=== PATIENT | female | born 1965 | race Caucasian/White ===

== ENCOUNTER 2022-03-19 17:46 | Emergency (ER) | payer BC, SELFPAY ==
--- NOTE | ~2022-03-19 | XR_ITS ---
Indication: Trauma EXAMINATION: Right ankle, right foot. 2 Detail views the right ankle demonstrate oblique fracture of the distal fibula. Mild distraction. The mortise appears grossly intact. The medial malleolus region shows some irregularity most consistent with dystrophic calcification associated with previous injury. Acute avulsion here cannot be excluded. Moderate to marked spurring at the insertion of the plantar aponeuroses and mild spurring at the insertion of the Achilles 3 views of the right foot does not demonstrate fracture or dislocation of the right foot proper. XR/XR ankle RT min 3V IMPRESSION: Oblique fracture of the distal fibula is minimally displaced. Irregularity of the medial malleolus could be chronic. Correlation recommended clinically. No fracture or dislocation more distally in the right foot.
--- NOTE | ~2022-03-19 | XR_ITS ---
Indication: Trauma EXAMINATION: Right ankle, right foot. 2 Detail views the right ankle demonstrate oblique fracture of the distal fibula. Mild distraction. The mortise appears grossly intact. The medial malleolus region shows some irregularity most consistent with dystrophic calcification associated with previous injury. Acute avulsion here cannot be excluded. Moderate to marked spurring at the insertion of the plantar aponeuroses and mild spurring at the insertion of the Achilles 3 views of the right foot does not demonstrate fracture or dislocation of the right foot proper. XR/XR foot RT min 3V IMPRESSION: Oblique fracture of the distal fibula is minimally displaced. Irregularity of the medial malleolus could be chronic. Correlation recommended clinically. No fracture or dislocation more distally in the right foot.
[2022-03-19 18:41] VITALS: BP 121/79; PULSE 69; RESP 18; TEMP 36.8; O2SAT 98; BMI 35.3
--- NOTE | 2022-03-19 18:43 | ED.GENADULT ---
HPI - General Adult General Chief complaint: Extremity Injury, Lower <CRISTIANO Lucio - Last Filed: 03/19/22 18:50> Stated complaint: Fall/ Right ankle pain <CRISTIANO Lucio - Last Filed: 03/19/22 18:50> Time Seen by Provider: 03/20/22 00:20 <CRISTIANO Lucio - Last Filed: 03/19/22 18:50> Source: patient <Cece Marcum NP - Last Filed: 03/20/22 04:01> Mode of arrival: wheelchair <Cece Marcum NP - Last Filed: 03/20/22 04:01> Limitations: no limitations <Cece Marcum NP - Last Filed: 03/20/22 04:01> History of Present Illness HPI narrative: 57-year-old female presents for right ankle pain and swelling after slipping and falling over her dog. Patient is unable to bear weight. <Cece Marcum NP - Last Filed: 03/20/22 04:01> Onset (ago): hour(s) (Within the hour of arrival) <Cece Marcum NP - Last Filed: 03/20/22 04:01> Location: right and lower extremity <Cece Marcum NP - Last Filed: 03/20/22 04:01> Radiation: non-radiation <Cece Marcum NP - Last Filed: 03/20/22 04:01> Severity: severe <Cece Marcum NP - Last Filed: 03/20/22 04:01> Quality: aching and constant <Cece Marcum NP - Last Filed: 03/20/22 04:01> Pain Consistency: constant <Cece Marcum NP - Last Filed: 03/20/22 04:01> Relieving factors: none <Cece Marcum NP - Last Filed: 03/20/22 04:01> Exacerbating factors: movement <Cece Marcum NP - Last Filed: 03/20/22 04:01> Associated symptoms: denies other symptoms <Cece Marcum NP - Last Filed: 03/20/22 04:01> Treatments prior to arrival: none <Cece Marcum NP - Last Filed: 03/20/22 04:01> Related Data Home medications: Previous Rx's Medication Instructions Recorded ibuprofen 600 mg tablet 600 mg PO Q6H PRN pain #60 tabs 03/20/22 oxycodone 5 mg tablet 5 mg PO Q4H PRN pain 3 days #18 03/20/22 tabs <CRISTIANO Lucio - Last Filed: 03/19/22 18:50> Allergies/adverse reactions: Allergies Allergy/AdvReac Type Severity Reaction Status Date / Time ENVIRONMENTAL Allergy Unknown HEADACHES, Uncoded 11/30/19 16:13 NASAL CONGESTION <CRISTIANO Lucio - Last Filed: 03/19/22 18:50> Review of Systems Review of Systems: Constitutional: No Fever, No Chills Respiratory: No Cough, No Dyspnea Musculoskeletal: positive right ankle pain pain, No Myalgias, positive right ankle Swelling Skin: No Skin lacerations, No rash Neuro: No Weakness, No Numbness, No Paresthesias <Cece Marcum NP - Last Filed: 03/20/22 04:01> Yes all other systems are reviewed and are negative <Cece Marcum NP - Last Filed: 03/20/22 04:01> [facility] Past Medical History Attestation statement: The following information was validated with the patient. <Cece Marcum NP - Last Filed: 03/20/22 04:01> Source: old records reviewed <Cece Marcum NP - Last Filed: 03/20/22 04:01> Social History Social History: Social History Advance Directives: No Advance Directives Information Provided: Yes <CRISTIANO Lucio - Last Filed: 03/19/22 18:50> Physical Exam ED Vital Signs: Vital Signs - 24 hr 03/19/22 18:41 03/20/22 00:21 Temperature 98.2 F 98.0 F Pulse Rate 69 71 Respiratory Rate 18 17 Blood Pressure 121/79 127/77 Pulse Oximetry 98 96 Oxygen Delivery Method Room Air BMI result Body Mass Index 35.3 <NANETTE LucioBC - Last Filed: 03/19/22 18:50> Vital Signs - 24 hr 03/19/22 18:41 03/20/22 00:21 Temperature 98.2 F 98.0 F Pulse Rate 69 71 Respiratory Rate 18 17 Blood Pressure 121/79 127/77 Pulse Oximetry 98 96 Oxygen Delivery Method Room Air BMI result Body Mass Index 35.3 <Cece Marcum NP - Last Filed: 03/20/22 04:01> Appearance: Alert. Oriented X3. Moderate distress. Eyes: Pupils equal, round and reactive to light. Neck: Normal inspection. Neck supple. CVS: Normal heart rate and rhythm. Respiratory: No respiratory distress. Skin: Skin warm and dry. Normal skin color. Normal skin turgor. Extremities: Right ankle swelling with ecchymosis to the lateral malleolar process to the dorsal aspect of the foot. Decreased range of motion, full range of motion not assessed secondary to findings of distal fibular fracture on x-ray. Pulses are equal brisk capillary refill. Neurovascularly intact. Neuro: No motor deficit. No sensory deficit. Cranial nerves 2-12 intact. <Cece Marcum NP - Last Filed: 03/20/22 04:01> Course Course Course Narrative: RME: 57 years old female was trying to get outside through the side door when her dog ran out through the door 1st. Patient then slipped and went down 3 stairs. Patient landed on her right side twisting her right ankle. Patient denies hitting head. No LOC. Patient was able to put minimal weight when stepping on the right foot. Will do x-ray of the right ankle <IZZY Lucio-HERNÁN - Last Filed: 03/19/22 18:50> RME: 57 years old female was trying to get outside through the side door when her dog ran out through the door 1st. Patient then slipped and went down 3 stairs. Patient landed on her right side twisting her right ankle. Patient denies hitting head. No LOC. Patient was able to put minimal weight when stepping on the right foot. Will do x-ray of the right ankle X-rays completed while patient was in the emergency department waiting room, shows a minimally displaced distal fibular fracture and a suspected avulsion fracture of the medial malleolar process. Patient will be placed in a posterior short-leg with stirrup splint, nonweightbearing, with crutches. Will provide pain management with oxycodone, patient does understand and verbalizes the dangers of taking this medication, the high risk of addiction and side effects. Will give Toradol to help decrease inflammation. Patient understand that she must follow-up with the surgeon, referred to Dr. Deluca. 30 minute status post splinting, patient continues with brisk capillary refill and is neurovascularly intact. I did give her instructions for compartment syndrome, and she understands signs and symptoms indicating need for emergent intervention. Patient agrees with plan of care to discharge home. <Cece Marcum NP - Last Filed: 03/20/22 04:01> Medications Administered Discontinued Medications Generic Name Dose Route Start Last Admin Trade Name Freq PRN Reason Stop Dose Admin Ketorolac Tromethamine 30 mg 03/20/22 00:39 03/20/22 01:13 Ketorolac Tromethamine 30 Mg/Ml Vial IM 03/20/22 00:40 30 mg ONCE ONE Administration Oxycodone HCl 5 mg 03/20/22 00:39 03/20/22 01:12 Oxycodone Hcl Immed Release 5 Mg Tablet PO 03/20/22 00:40 5 mg ONCE ONE Administration <IZZY Lucio-HERNÁN - Last Filed: 03/19/22 18:50> Medications Administered Discontinued Medications Generic Name Dose Route Start Last Admin Trade Name Freq PRN Reason Stop Dose Admin Ketorolac Tromethamine 30 mg 03/20/22 00:39 03/20/22 01:13 Ketorolac Tromethamine 30 Mg/Ml Vial IM 03/20/22 00:40 30 mg ONCE ONE Administration Oxycodone HCl 5 mg 03/20/22 00:39 03/20/22 01:12 Oxycodone Hcl Immed Release 5 Mg Tablet PO 03/20/22 00:40 5 mg ONCE ONE Administration <Cece Marcum NP - Last Filed: 03/20/22 04:01> Medical Decision Making Differential Diagnosis Differential Diagnoses: The differential diagnosis associated with the presentation includes <Cece Marcum NP - Last Filed: 03/20/22 04:01> Fracture, dislocation, effusion <Cece Marcum NP - Last Filed: 03/20/22 04:01> Admission/Observation Consideration of admission/observation: Escalation of care including admission/observation considered <Cece Marcum NP - Last Filed: 03/20/22 04:01> Admission not considered for this patient <Cece Marcum NP - Last Filed: 03/20/22 04:01> Independent Interpretation I performed an independent interpretation of an: Plain X-Ray <Cece Marcum NP - Last Filed: 03/20/22 04:01> Radiology Impression Discussion of test interpretation with radiology: I have reviewed the radiologist's reading. <Cece Marcum NP - Last Filed: 03/20/22 04:01> Radiologist Impression: EXAMINATION: Right ankle, right foot. 2 Detail views the right ankle demonstrate oblique fracture of the distal fibula. Mild distraction. The mortise appears grossly intact. The medial malleolus region shows some irregularity most consistent with dystrophic calcification associated with previous injury. Acute avulsion here cannot be excluded. Moderate to marked spurring at the insertion of the plantar aponeuroses and mild spurring at the insertion of the Achilles 3 views of the right foot does not demonstrate fracture or dislocation of the right foot proper. XR/XR foot RT min 3V IMPRESSION: Oblique fracture of the distal fibula is minimally displaced. ? Irregularity of the medial malleolus could be chronic. Correlation recommended clinically. ? No fracture or dislocation more distally in the right foot. <Cece Marcum NP - Last Filed: 03/20/22 04:01> Independent Historian Clinical information obtained from an independent historian. History obtained from or confirmed by: Spouse <Cece Marcum NP - Last Filed: 03/20/22 04:01> External Record Review External record reviewed: Outpatient record <Cece Marcum NP - Last Filed: 03/20/22 04:01> Prescription Management I considered prescription management with: Pain Medication <Cece Marcum NP - Last Filed: 03/20/22 04:01> Discharge Plan Discharge Clinical Impression: Fracture of distal end of fibula, Avulsion fracture of ankle <IZZY Lucio-HERNÁN - Last Filed: 03/19/22 18:50> Patient Disposition: Home, Self-Care <Elizabeth Perez SKEIN MERCERIZING MACHINE OPERATOR-BC - Last Filed: 03/19/22 18:50> Instructions: Ankle Fracture (ED), Crutch Instructions (ED), Compartment Syndrome (DC), R.I.C.E. Treatment (ED) <Elizabeth Perez SKEIN MERCERIZING MACHINE OPERATOR-BC - Last Filed: 03/19/22 18:50> Additional Instructions: You were evaluated for injuries from a fall. Your distal fibula is fractured. It is also suspected that you have an avulsion fracture to the medial malleolus. Please keep splint in place. You must follow-up with an orthopedic surgeon. I have referred you to Dr. Deluca. Please call and request appointment. I prescribed oxycodone. This medication is a narcotic and has high risk for addiction and abuse. This medication can delay reaction time, increased risk for falls, cause drowsiness, and constipation. Drink plenty of fluids. Consider MiraLax and Colace to help soften stools. Use crutches at all times. You cannot bear weight on that ankle. Take Tylenol 650 mg every 6 hours and Motrin 600 mg every 6 hours to help reduce pain. Write down what time you take these medications to prevent accidental overdose. We gave Toradol at 01:00, Motrin 600 mg due at 07:00. Consider taking Tylenol at 04:00 so you can have nonnarcotic pain management every 3 hours. Rest ice and elevate. I provided you instructions for compartment syndrome. You do not have compartment syndrome at this time however you must understand and recognize signs and symptoms indicating this serious condition. If you notice any signs or symptoms indicating compartment syndrome please return to the emergency department immediately. Thank you for choosing this emergency department for evaluation. Please follow-up with primary care physician as needed. Return to the emergency department for any new, concerning, or worsening symptoms. <Elizabeth HeartVALERIA gagnonP-BC - Last Filed: 03/19/22 18:50> Prescriptions: New oxycodone 5 mg tablet 5 mg PO Q4H PRN (Reason: pain) 3 Days Qty: 18 0RF Rx Instructions: Partial Fill upon patient request. Distal malleolar fracture ibuprofen 600 mg tablet 600 mg PO Q6H PRN (Reason: pain) Qty: 60 0RF <CRISTIANO Lucio - Last Filed: 03/19/22 18:50> Referrals: Krunal Deluca MD [Physician] - 3 days (Distal fibular fracture with suspected malleolar avulsion fracture) <CRISTIANO Lucio - Last Filed: 03/19/22 18:50> Interventions: ED Discharge Assessment Last Done: 03/20/22 01:16 <CRISTIANO Lucio - Last Filed: 03/19/22 18:50> Discharge Date/Time: 03/20/22 01:17 <CRISTIANO Lucio - Last Filed: 03/19/22 18:50>
[2022-03-20 00:21] VITALS: BP 127/77; PULSE 71; RESP 17; TEMP 36.7; O2SAT 96
[2022-03-20] MEDS: oxyCODONE HCl Immed Release 5 MG TABLET PO (01:12)
[2022-03-20] MEDS: Ketorolac Tromethamine 30 MG/ML VIAL IM (01:13)
== END 2022-03-20 01:17 | disposition home or self-care (01) ==
PROVIDERS: Emergency Provider Emergency Medicine
DX: S82.831A Other fracture of upper and lower end of right fibula, initial encounter for closed fracture (principal); S82.891A Other fracture of right lower leg, initial encounter for closed fracture; M79.604 Pain in right leg; W01.0XXA Fall on same level from slipping, tripping and stumbling without subsequent striking against object, initial encounter; Y93.K1 Activity, walking an animal; Y92.480 Sidewalk as the place of occurrence of the external cause; Y99.9 Unspecified external cause status; Z79.899 Other long term (current) drug therapy
CPT/HCPCS: 29515; 73610; 73630; 96372; 99283; 99284; J1885

== ENCOUNTER → 2022-03-23 11:13 | Outpatient (BNVA) | payer BC, SELFPAY | PROVIDERS: Visit Provider Physician Assistant | DX: Z13.89 Encounter for screening for other disorder (principal) ==

== ENCOUNTER 2022-03-24 09:26 | Day surgery (SDC) | payer BC, SELFPAY ==
[2022-03-24] VITALS (8 sets, daily range): BP systolic 122–146; BP diastolic 61–85; PULSE 54–66; RESP 16; TEMP 36.5–37.6; O2SAT 91–100; BMI 35.3
--- NOTE | ~2022-03-24 | FL_ITS ---
EXAMINATION: XR FLUOROSCOPY WITH IMAGES CLINICAL INFORMATION: Right ankle fracture, reduction. COMPARISON: Right ankle radiographs 03/19/2022 TECHNIQUE: Fluoroscopy Supervised By: Dr. Krunal Deluca. Fluoroscopy Time: 0.2 minutes. Cumulative Dose: 0.598 mGy. DAP: 0.0100 Gycm2. Images: 3. FINDINGS: Distal fibular fracture is reduced with lateral plate and multiple screws. Hardware is intact. No destructive process. Near-anatomic alignment. Ankle mortise is symmetric. No dislocation. FL/FL guidance in OR IMPRESSION: Status post open reduction internal fixation distal fibular fracture.
--- NOTE | 2022-03-24 11:06 | MHC.SHP ---
Pre-Procedural Eval Section A Date of Service: 03/24/22 The patient is an INPATIENT: No Changes since office visit: No Cold of Flu in the past 2 weeks, No New Medical Problems, No Changes in Medication and No Patient answered all questions The History & Physical has been completed within 30 days and I have reviewed it.: Yes Section B Chief Complaint: Displaced bimalleolar fracture of right lower leg, Allergies: Allergies Allergy/AdvReac Type Severity Reaction Status Date / Time ENVIRONMENTAL Allergy Unknown HEADACHES, Uncoded 03/24/22 09:49 NASAL CONGESTION Plan I have reviewed the history and physical and performed a pertinent physical examination on my patient. No changes have occurred unless specified. Time Spent With Patient Time: Total time managing care of this patient today ____ minutes.
--- NOTE | 2022-03-24 11:13 | HO.ANESPROP2 ---
HPI - Anesthesia Eval Consult details Narrative: 57 F for ankle fracture ORIF PMFSH Active Problems Active Problems: All Active Problems (Updated 03/23/22 @ 12:12 by Prince Mcintosh) Bimalleolar fracture of right ankle (Acute) Past Medical History Medical History Sleep apnea Family History Family history of problems with anesthesia: No Surgical History Surgical History H/O removal of cyst H/O: hysterectomy Status post ORIF of fracture of ankle History of Problems with Anesthesia: No Social History Social History Patient Tobacco Use Status: Never used Tobacco Use of substances other than those prescribed or required for medical reasons: No Are you DNR?: No Advance Directives: No Advance Directives Information Provided: Yes Current occupational status: unemployed Meds Allergies Allergy/AdvReac Type Severity Reaction Status Date / Time ENVIRONMENTAL Allergy Unknown HEADACHES, Uncoded 03/24/22 09:49 NASAL CONGESTION Home Medications Medication Instructions Recorded Confirmed Last Taken Type albuterol sulfate 90 mcg/actuation 1 puff inhalation Q4H PRN dyspnea 03/23/22 03/24/22 01/22/22 History aerosol inhaler clonazepam 0.5 mg tablet 0.5 mg PO BID PRN Anxiety 03/23/22 03/24/22 03/23/22 History glycopyrrolate 1 mg tablet 1 mg PO DAILY 03/23/22 03/24/22 03/23/22 History phentermine 15 mg capsule 15 mg PO DAILY 03/23/22 03/24/22 03/23/22 History propranolol 10 mg tablet 10 mg PO DAILY 03/23/22 03/24/22 03/23/22 History sertraline 100 mg tablet 100 mg PO BID 03/23/22 03/24/22 03/23/22 History Exam Exam Date and Time: March 24, 2022 111 Height,Weight and Vital Signs: Height 5 ft 1 in Weight 187 lb Last Vital Signs Temp 98.2 F 03/24/22 10:05 Pulse 66 03/24/22 10:05 Resp 16 03/24/22 10:05 BP 146/85 H 03/24/22 10:05 Pulse Ox 97 03/24/22 10:05 O2 Del Method 03/24/22 10:05 Airway Mallampati Class: II TM Dist: >3cm Neck ROM: Full Loose/Missing/Broken Teeth: No Assessment and Plan Assessment Anesthesia Assessment: Anesthesia Plan Discussed and Chart Reviewed Final Anesthetic Review Family History of Problems with Anesthesia: No History of Problems with Anesthesia: No NPO: Yes ASA Class: II Final Preanesthetic Review: No Changes in Pt Med Stat, Meds/Allgs Chart Reviewed, Consent Obtained/Reviewed and Anes Risks/Benef Reviewed Patient Risk: Low Procedure Risk: Low Anesthetic Plan Anesthetic Plan: GA and Regional Block Disposition: Standard PACU
--- NOTE | 2022-03-24 12:29 | PM.OP ---
Brief Operative Note Date of Service: 03/24/22 Pre-op diagnosis: Right lateral mal fracture Post-op diagnosis: same Procedure: ORIF right lateral mal Implants: [place] 03/17 tubular lateral 7 hole plate Surgeon: Krunal Deluca MD Anesthesia: GETA and regional Was an Truant Officer used for this Procedure?: Yes Truant Officer: Obed Lopez Estimated blood loss (mL): 25 Tourniquet time (min): 40 IV fluids (mL): 800 Pathology: none sent Condition: stable Disposition: PACU
--- NOTE | 2022-03-26 09:26 | P.OP_ITS ---
Operative Note Operative Note Date of Service: 03/24/22 Narrative: Date of Service: 03/24/22 Pre-op diagnosis: Right lateral mal fracture Post-op diagnosis: same Procedure: ORIF right lateral mal Implants: [place] 1/3 tubular lateral 7 hole plate Surgeon: Krunal Deluca MD Anesthesia: GETA and regional Was an Blast Setter used for this Procedure?: Yes Blast Setter: Obed Lopez Estimated blood loss (mL): 25 Tourniquet time (min): 40 IV fluids (mL): 800 Pathology: none sent Condition: stable Disposition: PACU Procedure in detail: Patient was brought to the operating room and placed supine on the operative table. All bony prominences were well padded and a time-out was called to ident nohemi proper site proper procedure proper surgeon. IV antibiotics per weight were administered. I began by exsanguinating limb is slightly tourniquet to 300 mm Hg. I then made a standard posterolateral incision over the fibula. Full- thickness flaps were taken down to the fibular shaft and distal fibula. The fracture was identified and cleaned with a combination of curette, rongeur and irrigation. A lobster claw was used to provisionally reduce the fracture and a 7 hole 1/3 tubular plate was applied using standard AO technique. Biplanar fluoroscopy was used to confirm hardware position and fracture reduction. Once I was satisfied that both of these were acceptable I irrigated copiously and turned my attention to the medial side. This syndesmosis was tested using external rotation test and was found to be stable. Therefore all instrumentation was removed and copious irrigation was performed. Absorbable suture and lui were used for closure and the patient was placed into sterile dressings and a well-padded posterior splint. Tourniquet was let down and the patient was extubated brought to recovery room in stable condition there were no known complications.
== END 2022-03-24 14:24 | disposition home or self-care (01) ==
PROVIDERS: Visit Provider Orthopaedic Surgery
PROC: (CPT 27814; principal; 2022-03-24 11:50)
DX: S82.841A Displaced bimalleolar fracture of right lower leg, initial encounter for closed fracture (principal); W10.8XXA Fall (on) (from) other stairs and steps, initial encounter; Y93.K1 Activity, walking an animal; Y92.009 Unspecified place in unspecified non-institutional (private) residence as the place of occurrence of the external cause; Y99.8 Other external cause status; G47.30 Sleep apnea, unspecified; J30.2 Other seasonal allergic rhinitis; Z79.899 Other long term (current) drug therapy
CPT/HCPCS: 27814; C1713; J0690; J1100; J1885; J2250; J2405; J2795

== ENCOUNTER → 2022-03-30 14:13 | Outpatient (BNVA) | payer BC, SELFPAY | PROVIDERS: Visit Provider Physician Assistant | DX: S82.841A Displaced bimalleolar fracture of right lower leg, initial encounter for closed fracture (principal) ==

== ENCOUNTER 2022-04-06 11:27 | Outpatient (REF) | payer BC, SELFPAY ==
--- NOTE | ~2022-04-06 | XR_ITS ---
EXAMINATION: XR ANKLE, RIGHT CLINICAL INFORMATION: Pain. COMPARISON: Radiograph right ankle 03/19/2022. TECHNIQUE: AP, lateral, and mortise views of the right ankle. FINDINGS: Lateral fixation plate with multiple traversing screws along the distal fibula traversing a distal fibular fracture that demonstrates improved anatomic alignment compared to 03/19/2022. Again noted chronic appearing deformity of the medial malleolus. Ankle mortise is maintained. No interval injuries. Decreasing soft tissue swelling around the lateral surface of the ankle with surgical skin lui noted. Similar degree of soft tissue thickening along the plantar surface of the foot with redemonstration of a 2 mm radiopaque body in the superficial soft tissues of the heel, possibly a foreign body. Calcaneus spurs redemonstrated. XR/XR ankle RT min 3V IMPRESSION: 1. Improved anatomic alignment of a distal fibular fracture status post ORIF. No evidence of hardware failure. 2. Chronic appearing deformity of the medial malleolus. 3. Similar degree of soft tissue thickening along the plantar surface of the foot with redemonstration of a 2 mm radiopaque body in the superficial soft tissues of the heel, possibly a foreign body, recommend correlation with physical examination.
== END 2022-04-06 11:28 | disposition home or self-care (01) ==
LOC: HO.HOSX 11:27
PROVIDERS: Visit Provider Physician Assistant
DX: S82.841D Displaced bimalleolar fracture of right lower leg, subsequent encounter for closed fracture with routine healing (principal)
CPT/HCPCS: 29405; 73610

== ENCOUNTER 2022-05-07 | Outpatient (REF) | payer BC, SELFPAY ==
--- NOTE | ~2022-05-07 | XR_ITS ---
EXAMINATION: XR ANKLE, RIGHT CLINICAL INFORMATION: Pain COMPARISON: Previous x-ray March 2022 TECHNIQUE: AP, lateral, and mortise views of the right ankle. FINDINGS: Plate and screws in the distal fibula appear unchanged. Distal fibular shaft fracture appears more indistinct and there is increased periosteal reaction suggestive of healing. Well-corticated ossification inferior to the medial malleolus. This is probably related to old trauma. No other acute fracture. Normal ankle mortise. Large calcaneal spurs. Soft tissue foreign body in the heel, stable. XR/XR ankle RT min 3V IMPRESSION: ORIF of distal fibular shaft fracture. Calcaneal spurs. Soft tissue foreign body in the heel similar to previous exam.
== END 2022-05-07 00:01 | disposition home or self-care (01) ==
LOC: HO.HOSX
PROVIDERS: Visit Provider Physician Assistant
DX: S82.841D Displaced bimalleolar fracture of right lower leg, subsequent encounter for closed fracture with routine healing (principal)
CPT/HCPCS: 73610

== ENCOUNTER 2022-06-19 08:30 | Outpatient (REF) | payer BC, SELFPAY ==
--- NOTE | ~2022-06-19 | XR_ITS ---
EXAMINATION: XR ANKLE, RIGHT CLINICAL INFORMATION: Pain COMPARISON: Previous x-ray most recent April 2022 TECHNIQUE: AP, lateral, and mortise views of the right ankle. FINDINGS: There is a plate and screws transfixing a healed distal fibular shaft fracture. Orthopedic hardware unchanged. Evidence of old trauma to the medial malleolus. Normal ankle mortise. No ankle joint effusion. Calcaneal spurs. Soft tissue foreign body in the heel no longer seen. XR/XR ankle RT min 3V IMPRESSION: ORIF of right distal fibular shaft fracture.
== END 2022-06-19 08:31 | disposition home or self-care (01) ==
LOC: HO.HOSX 08:30
PROVIDERS: Visit Provider Physician Assistant
DX: S82.841D Displaced bimalleolar fracture of right lower leg, subsequent encounter for closed fracture with routine healing (principal)
CPT/HCPCS: 73610